=== PATIENT | female | born 1990 | race African-American/Black ===

== ENCOUNTER 2024-12-18 10:43 | Emergency (ER) | payer SELFPAY ==
[2024-12-18] MEDS ORDERED: Acetaminophen 500 MG TAB ONE (11:04)
== END 2024-12-18 11:35 ==
LOC: CSHERS 10:43
DX: Z53.21 Procedure and treatment not carried out due to patient leaving prior to being seen by health care provider (principal); F17.290 Nicotine dependence, other tobacco product, uncomplicated